=== PATIENT | female | born 1985 | race Caucasian/White ===

== ENCOUNTER 2023-06-03 15:52 | Emergency (ER) | payer OTHER, SELFPAY ==
[2023-06-03 15:52] VITALS: BMI 24.6
[2023-06-03 15:58] VITALS: BP 142/76
--- NOTE | 2023-06-03 17:46 | ED.GENMED ---
History of Present Illness
General
Chief Complaint: Heart Rate Problem
Source: patient
Time Seen by Provider: 06/03/23 17:21
Travel History
Have you had any contact with someone who has COVID-19?: No
Do you have any symptoms of coronavirus? Fever > 100 degrees, chills, cough, shortness of breath, sore throat, loss of taste or smell, muscle aches, or headache?: No
History of Present Illness
History of Present Illness:
This patient is a 38-year-old female presents emergency complaints of feeling like she became flushed followed by heart rate measured at 120. She started to take some deep breaths because she thought maybe she was panicking. Within a minute or 2
her heart rate slowed down, but then it sped up again to the 120s lasting a minute or 2 and then resolving. With this she denies associated nausea, vomiting but she did feel slightly dizzy. She denies recent fever, chills, headache, dyspnea,
abdominal pain, recent immobilization, recent trauma, estrogen use, history of DVT in her family members, or other identifiable PE risk factors. Patient is asymptomatic at this time. Pt states episode started when she tried to life a battery, but
then decided it was too busy and went inside to ask for help. At that time, she had a momentary epidose of cp. Then, palpitations began assoc with mild clammy feeling.
Past History
Past History
ED Past Medical History: None
ED Past Surgical History: and Other (Adenoid removal)
Social History
Tobacco: Non-smoker
Alcohol: Occasional
Drug: None
Personal:
Living: with family
Employment: Employed
Phy Exam
Physical Exam
Physical Exam:
GENERAL: Alert , in no apparent distress
EYE: pupils equal and reactive
NECK: Supple, no significant adenopathy.
ENT: o/p clr, mmm.
CARDIAC: Regular rate and rhythm .
LUNGS: Clear breath sounds bilaterally, no acute respiratory distress, no wheezes/rales/rhonchi
ABDOMEN: Soft, without focal tenderness, no r/g, no cvat
NEUROLOGICAL: Alert and oriented, no focal neuro deficits
SKIN: Warm and dry, skin intact.
MUSCULOSKELETAL: No edema, well perfused.
PSYCH: Normal and appropriate interaction.
Course
Orders/Labs/Results
Orders:
Orders
06/03/23 16:02
Electrocardiogram (*1) Urgent
Reason for Study: Palpitations
06/03/23 16:03
EKG- Treatment ONCE
Test Result ONCE
06/03/23 17:50
Complete Blood Count/With Diff Urgent
Comprehensive Metabolic Panel Urgent
HCG, Serum Qualitative Screen Urgent
TSH Reflex To Free T4 Urgent
Troponin I Urgent
Abnormal Lab Results
06/03/23
17:50
MPV 12.7 H fL
(7.4-10.4)
Absolute Lymphs (auto) 3.5 H 10^3/uL
(1.2-3.4)
Absolute Monos (auto) 0.8 H 10^3/uL
(0.1-0.6)
Sodium 134 L mmol/L
(135-145)
BUN 19 H mg/dl
(7-17)
Glucose 105 H mg/dl
(70-99)
06/03/23 17:50
06/03/23 17:50
Vital Signs
Initial and Last Documented VS:
Initial Vital Signs
Temp Pulse Resp BP Pulse Ox
98.5 F 113 18 142/76 100
06/03/23 15:58 06/03/23 15:58 06/03/23 15:58 06/03/23 15:58 06/03/23 15:58
Last Documented Vital Signs
Temp Pulse Resp BP Pulse Ox
98.5 F 80 15 142/76 100
06/03/23 15:58 06/03/23 18:45 06/03/23 18:45 06/03/23 15:58 06/03/23 15:58
*Critical Care Note
Total Time (30-74mins, 75-104mins- exclusive of procedures): Not Applicable
Update Note
Update Note:
Patient presents to the Emergency Department with ___palpitations
Number and Complexity of Problems Addressed at the Encounter
� Chronic conditions affecting care:
� Acute Exacerbation and/or Progression of Chronic Illness:
� Differential Diagnosis includes: But not limited to dehydration, hyperthyroidism, electrolyte disturbance, etc.
Amount and/or Complexity of Data to be Reviewed and Analyzed
� I performed an independent evaluation of and my interpretation is:
EKG: Read by me, normal sinus rhythm with sinus arrhythmia, no acute ischemia, QTc within normal limits
CT:
Xrays:
Laboratory Studies: Unremarkable, hCG negative, TSH unremarkable
Other:
� Review of other/old records reveals:
� Clinical information was obtained by an independent historian:
� Prescriptions/Medications Considered but not given:
� Further testing considered but not performed:
Risk of Complications and/or Morbidity or Mortality of Patient Management
� Social determinants of health affecting care:
� Discussion with other providers (PCP, Hospitalists, Consultants, etc):
� Escalation of care including admission/observation vs risk of discharge considered: 715 p.m. patient remains well-appearing, no's new symptoms, workup generally unremarkable here for serious etiology identified. Discussed with
patient importance of follow-up and reasons to return to the emergency department. This episode that she had earlier before coming here may have been associated with an arrhythmia such as SVT, A-fib, etc., patient advised to see her doctor and
close follow-up regarding particular if she has repeat symptoms.
ED Attending Note
-
Portions of this chart may have been created with voice recognition software.� Occasional wrong word or��sound alike� substitutions may have occurred due to the inherent limitations of voice recognition software.
Discharge Plan
Departure
Patient Disposition: Home (Routine Discharge)
Date of Disposition: 06/03/23
Time of Disposition: 19:16
Patient with high blood pressure during this ER visit?: Yes
Condition: Good
Discharge Problem:
Heart palpitations
Instructions: Palpitations (DC), BLOOD PRESSURE
Prescriptions:
No Action
vit no.[id number] [ Vitamin] 1 EACH tablet
1 ea PO DAILY
ferrous sulfate [FeroSul] 325 MG tablet
325 mg PO DAILY Qty: 180 0RF
ibuprofen 600 MG tablet
600 mg PO Q4HPRN PRN (Reason: cramps) Qty: 90 0RF
Activity Restrictions/Additional Instructions:
PLEASE SEE YOUR DOCTOR IN CLOSE FOLLOW UP. IF YOU DEVELOP FEVER, CHEST PAIN/PRESSURE, TROUBLE BREATHING, DIZZINESS, RECURRENT PALPITATIONS, OR OTHER WORRISOME SIGNS, GO TO THE ER IMMEDIATELY!
Interventions
Interventions:
*Risk Screen - Suicide Last Done: 06/03/23 15:58
*General Assessment Last Done: 06/03/23 15:58
*Neglect/Abuse Screening Last Done: 06/03/23 15:58
ED- Fall Risk Assessment Last Done: 06/03/23 17:52
ED- Cardiac Assessment Last Done: 06/03/23 17:52
ED- Pulmonary Assessment Last Done: 06/03/23 17:52
[2023-06-03 18:09] LABS: % Basophils 0.5 % (0-2); % Eosinophils 1.1 % (0-6); % Immature Granulocytes 0.4 % (0-0.5); % Lymphocytes 33.1 % (20.5-51.1); % Monocytes 7.7 % (1.7-9.3); % Neutrophils 57.2 % (42.2-75.2); Absolute Basophils 0.1 10^3/uL (0-0.2); Absolute Eosinophils 0.1 10^3/uL (0-0.7); Absolute Lymphocytes 3.5 10^3/uL (1.2-3.4); Absolute Monocytes 0.8 10^3/uL (0.1-0.6); Absolute Neutrophils 6.1 10^3/uL (1.4-6.5); Hematocrit 37.3 % (37.0-47.0); Hemoglobin 12.9 g/dL (12.0-16.0); Mean Corp Hgb Conc. 34.6 g/dL (33.0-37.0); Mean Corpuscular Hgb 30.1 pg (27.0-31.0); Mean Corpuscular Volume 87.1 fL (81.0-99.0); Mean Platelet Volume 12.7 fL (7.4-10.4); Nucleated Red Blood Cells % 0 %; Platelet Count 195 10^3/uL (130-400); Red Blood Cell Count 4.28 10^6/uL (4.20-5.40); Red Cell Dist. Width 12.6 % (11.5-14.5); White Blood Cell Count 10.7 10^3/uL (4.8-10.8)
[2023-06-03 18:15] LABS: HCG, Serum Qualitative Screen Negative
[2023-06-03 18:20] LABS: ALT (SGPT) 18 U/L (0-35); AST (SGOT) 24 U/L (14-36); Albumin 4.6 g/dl (3.5-5.0); Alkaline Phosphatase 59 U/L (38-126); Blood Urea Nitrogen 19 mg/dl (7-17); Carbon Dioxide 22 mmol/L (22-30); Chloride 106 mmol/L (98-107); Estimated Creatinine Clearance 80 ml/min; Glucose 105 mg/dl (70-99); Potassium 4.1 mmol/L (3.5-5.1); Sodium 134 mmol/L (135-145); Total Bilirubin 1.1 mg/dl (0.2-1.3); Total Protein 7.7 g/dl (6.3-8.2); eGFR > 60.00
[2023-06-03 18:30] LABS: Troponin I < 0.012 ng/ml
[2023-06-03 18:50] LABS: TSH Reflex To Free T4 2.11 uIU/ml (0.47-4.68)
== END 2023-06-03 19:52 | disposition home or self-care (01) ==
LOC: EMR 15:52
PROVIDERS: EMERGENCY PHYSICIAN Emergency Medicine; FAMILY PHYSICIAN Family Medicine
DX: R00.2 Palpitations (principal); R03.0 Elevated blood-pressure reading, without diagnosis of hypertension
CPT/HCPCS: 99284; 80053; 84443; 84484; 84703; 85025; 93005

== ENCOUNTER 2023-08-05 06:52 | Day surgery (SDC) | payer OTHER, SELFPAY ==
[2023-07-12 06:49] VITALS: BMI 22.9
[2023-07-12 07:48] LABS: % Basophils 0.5 % (0-2); % Eosinophils 2.3 % (0-6); % Immature Granulocytes 0.2 % (0-0.5); % Lymphocytes 43.9 % (20.5-51.1); % Monocytes 7.5 % (1.7-9.3); % Neutrophils 45.6 % (42.2-75.2); Absolute Eosinophils 0.2 10^3/uL (0-0.7); Absolute Lymphocytes 3.6 10^3/uL (1.2-3.4); Absolute Monocytes 0.6 10^3/uL (0.1-0.6); Absolute Neutrophils 3.7 10^3/uL (1.4-6.5); Hematocrit 37.2 % (37.0-47.0); Hemoglobin 12.5 g/dL (12.0-16.0); Mean Corp Hgb Conc. 33.6 g/dL (33.0-37.0); Mean Corpuscular Hgb 29.1 pg (27.0-31.0); Mean Corpuscular Volume 86.7 fL (81.0-99.0); Nucleated Red Blood Cells % 0 %; Platelet Count 165 10^3/uL (130-400); Red Blood Cell Count 4.29 10^6/uL (4.20-5.40); Red Cell Dist. Width 12.7 % (11.5-14.5); White Blood Cell Count 8.2 10^3/uL (4.8-10.8)
[2023-07-12 08:37] LABS: Blood Urea Nitrogen 20 mg/dl (7-17); Calcium 9.2 mg/dl (8.4-10.2); Carbon Dioxide 25 mmol/L (22-30); Chloride 105 mmol/L (98-107); Estimated Creatinine Clearance 83 ml/min; Glucose 93 mg/dl (70-99); Potassium 4.3 mmol/L (3.5-5.1); Sodium 138 mmol/L (135-145); eGFR > 60.00
[2023-07-12 08:39] LABS: Beta HCG Quantitative < 2.39 mIU/ml
[2023-08-05] VITALS (9 sets, daily range): BP systolic 97–114; BP diastolic 68–76; BMI 22.9
[2023-08-05] MEDS: NORMOSOL-R 1000 IV (10:35)
--- NOTE | 2023-08-06 22:55 | W.IMMPOSTOP ---
Surgical Immed Post Op Note
-
Primary Surgeon: Windy Crum DO
Assisting Surgeon: n/a
Pre-op Diagnosis: Intermenstrual bleeding, endometrial polyps
Post-op Diagnosis: same
Procedure Performed: hysteroscopy D&C polypectomy
Anesthesia Type:general LMA Dr. Ohara
Specimen / Cultures: 1. endocervical cureetings 2. endometrial curettings, possible fragments polyp
Estimated Blood Loss: less than 1 ml
Complications:none
Findings: Uterus sounded to 6 cm, bilateral tubal ostia seen. Possible small polyp/fragment polyp noted. Tubal ostia seen bilaterally.
Counts correct times 2.
Stable to recovery.
== END 2023-08-05 15:05 | disposition home or self-care (01) ==
LOC: SDS 06:52
PROVIDERS: ATTENDING PHYSICIAN Obstetrics & Gynecology; FAMILY PHYSICIAN Emergency Medicine
DX: N84.0 Polyp of corpus uteri (principal); N72 Inflammatory disease of cervix uteri; N93.8 Other specified abnormal uterine and vaginal bleeding; N92.3 Ovulation bleeding
CPT/HCPCS: 58558; 88305; 36415; 80048; 84702; 85025; 86850; 86900; 86901

== ENCOUNTER → 2024-03-10 08:53 | Outpatient (REF) | payer OTHER, SELFPAY | LOC: WDC 08:53 | PROVIDERS: ATTENDING PHYSICIAN Nurse Practitioner Family; FAMILY PHYSICIAN Emergency Medicine | DX: N63.20 Unspecified lump in the left breast, unspecified quadrant (principal); N63.23 Unspecified lump in the left breast, lower outer quadrant | CPT/HCPCS: 76642; 77062; 77066 ==

== ENCOUNTER → 2024-04-22 15:41 | Outpatient (REF) | payer OTHER, SELFPAY | LOC: MRI 3T 15:41 | PROVIDERS: ATTENDING PHYSICIAN Emergency Medicine | DX: R47.89 Other speech disturbances (principal); Z87.820 Personal history of traumatic brain injury; G93.5 Compression of brain; Z86.69 Personal history of other diseases of the nervous system and sense organs | CPT/HCPCS: 70553; A9575 ==

== ENCOUNTER → 2025-03-27 09:44 | Outpatient (REF) | payer OTHER, SELFPAY | LOC: PAVMRI 09:44 | PROVIDERS: ATTENDING PHYSICIAN Orthopaedic Surgery Hand Surgery; FAMILY PHYSICIAN Nurse Practitioner Family | DX: S53.449A Ulnar collateral ligament sprain of unspecified elbow, initial encounter (principal) | CPT/HCPCS: 73221 ==

== ENCOUNTER → 2025-04-13 11:14 | Outpatient (REF) | payer OTHER, SELFPAY | LOC: WDC 11:14 | PROVIDERS: ATTENDING PHYSICIAN Obstetrics & Gynecology; FAMILY PHYSICIAN Nurse Practitioner Family | DX: Z12.31 Encounter for screening mammogram for malignant neoplasm of breast (principal) | CPT/HCPCS: 77063; 77067 ==